=== PATIENT | male | born 1990 | race Caucasian/White ===

== ENCOUNTER 2022-12-18 14:51 | Emergency (ER) | payer OTHER ==
[~2022-12-18] VITALS: Ht 175.3 cm; Wt 95.3 kg
[2022-12-18 14:51] VITALS: BP_SYST 129
--- NOTE | 2022-12-18 14:51 | NUR ---
BROUGHT BACK TO BED #1 AND TRIAGED. WILL ASSUME CARE
--- NOTE | 2022-12-18 14:57 | NUR ---
Eugene abreu in [facility] - 12/18/22 at [address] BRIGGS AT [facility] FOR EVALUATION
--- NOTE | 2022-12-18 15:02 | NUR ---
Note undone in EDM - 12/18/22 at 1507 by JONN Patient given written and verbal discharge instructions and verbalizes understanding. ER discussed with patient the results and treatment provided. Patient in stable condition. ID arm band removed. Rx of NONE given. Patient educated on pain management and to follow up with PMD. Pain Scale 0/10. Opportunity for questions provided and answered. Medication side effect fact sheet provided.
--- NOTE | 2022-12-18 15:27 | NUR ---
PT REPORST RLQ PAIN 7/10 X 2 DAYS WOTH MILD NAUSEA, DENIES DYSURIA/HEMATURIA. RESP EVEN, AND UNLABORED , ON RA @98%. DENIES SOB OR CP. WILL CONT TO MONITOR. FROM HOME WITH FRIEND AT BEDSIDE.
[2022-12-18] MEDS ORDERED: NACL 0.9% 1,000 ML IV ONE ×2 (15:30→19:00)
[2022-12-18] MEDS ORDERED: KETOROLAC TROMETHAMINE 30 MG VIAL IVP ONE (15:30)
[2022-12-18 15:55] LABS: BILIRUBIN,URINE NEGATIVE (NEGATIVE); BLOOD, URINE 3+ (NEGATIVE); CLARITY/URINE SL CLOUDY (CLEAR); COLOR,URINE YELLOW (YELLOW); GLUCOSE,URINE NEGATIVE (NEGATIVE); KETONES,URINE 3+ (NEGATIVE); LEUKOCYTE ESTERASE ,URINE NEGATIVE (NEGATIVE); NITRITE, URINE NEGATIVE (NEGATIVE); PH,URINE 6.5 (5.0-8.0); PROTEIN URINE TRACE (NEGATIVE); UROBILINOGEN,URINE 0.2 (0.2-1.0)
[2022-12-18 16:06] LABS: BACTERIA,URINE None Seen /HPF (None Seen); MUCUS,URINE 2+ /LPF (None Seen); RBC,URINE >100 /HPF (0-3); WBC,URINE 0-3 /HPF (0-3)
[2022-12-18 16:11] LABS: CALCIUM 8.9 mg/dL (8.4-11.0); CREATININE 1.11 mg/dL (0.55-1.30)
[2022-12-18 16:17] LABS: TOTAL BILIRUBIN 1.4 mg/dL (0.0-1.0)
[2022-12-18 16:18] LABS: ALBUMIN 4.3 g/dL (3.4-4.8)
[2022-12-18 16:21] LABS: BASOPHILS % (AUTO) 0.2 % (0.0-2.0); EOSINOPHILS % (AUTO) 0.1 % (0.0-4.0); HEMATOCRIT 44.7 % (36-54); HEMOGLOBIN 15.5 g/dL (14.0-18.0); LYMPHOCYTES # (AUTO) 1.6 K/uL (1.0-5.5); LYMPHOCYTES % (AUTO) 10.7 % (20.5-51.5); MEAN CORPUSCULAR HEMOGLOBIN 31 pg (27-31); MEAN CORPUSCULAR HGB CONC 35 % (32-36); MEAN CORPUSCULAR VOLUME 91 fL (79.0-98.0); MONOCYTES # (AUTO) 0.8 K/uL (0.0-1.0); MONOCYTES % (AUTO) 5.5 % (1.7-9.3); NEUTROPHILS # (AUTO) 12.2 K/uL (1.8-7.7); NEUTROPHILS % (AUTO) 83.5 % (40.0-70.0); PLATELET COUNT (AUTO) 280 K/uL (130-430); RED BLOOD CELL COUNT(AUTO) 4.94 MIL/uL (4.2-6.2); RED CELL DISTRIBUTION WIDTH 12.8 % (9.0-15.0); WHITE BLOOD COUNT (AUTO) 14.6 K/uL (4.8-10.8)
[2022-12-18] MEDS ORDERED: MORPHINE 4 MG INJ. 4 MG/ML VIAL IVP ONE (19:00)
--- NOTE | 2022-12-18 19:26 | NUR ---
FIRST CONTACT WITH PT. ASSESSMENT COMPLETED. PT MEDICATED FOR PAIN.
--- NOTE | 2022-12-18 21:00 | NUR ---
MD AT [facility] TO DISCUSS FINDINGS AND DISCHARGE PLANS.
[2022-12-18] MEDS ORDERED: OXYC-128 PO (21:01)
[2022-12-18] MEDS ORDERED: IBUP-1969 PO (21:01)
--- NOTE | 2022-12-18 21:12 | NUR ---
Patient given written and verbal discharge instructions and verbalizes understanding. ER MD ROTHMAN discussed with patient the results and treatment provided. Patient in stable condition. ID arm band removed. IV catheter removed intact and dressing applied, no active bleeding. Rx of PERCOCET AND IBUPROPHEN given. Patient educated on pain management and to follow up with PMD. Pain Scale . Opportunity for questions provided and answered. Medication side effect fact sheet provided.
[2022-12-18 21:18] VITALS: BP_SYST 122
== END 2022-12-18 21:16 | disposition home or self-care (01) ==
LOC: SED 14:51
DX: N20.0 Calculus of kidney (principal); R10.31 Right lower quadrant pain; R11.2 Nausea with vomiting, unspecified; Z79.899 Other long term (current) drug therapy
CPT/HCPCS: 99285; 74176; 96374; 96361; 96375; 80053; 81000; 85025; 36415; 76376; J1885; J2270; J7030